=== PATIENT | male | born 1960 | race Caucasian/White ===

== ENCOUNTER 2016-07-04 20:38 | Inpatient (IN) | payer BC, OTHER ==
[~2016-07-04] VITALS: Ht 182.9 cm; Wt 133.0 kg
[2016-07-04 21:04] LABS: HEMOGLOBIN 16.7 gm/dl (14.0-17.5); RED BLOOD COUNT 5.45 M/UL (4.20-5.50); WHITE BLOOD COUNT 11.5 K/UL (4.5-11.0)
[2016-07-04 21:30] LABS: BUN/CREATININE RATIO 10 (0-10)
[2016-07-05] MEDS ORDERED: ASPIRIN325 MG PO (05:27)
[2016-07-05] MEDS ORDERED: MULTAQ 400 MG400 MG PO (05:27)
[2016-07-05 06:44] LABS: HEMOGLOBIN 16.8 gm/dl (14.0-17.5); RED BLOOD COUNT 5.51 M/UL (4.20-5.50); WHITE BLOOD COUNT 14.2 K/UL (4.5-11.0)
[2016-07-05 07:07] LABS: BUN/CREATININE RATIO 10 (0-10)
--- NOTE | 2016-07-05 10:13 | NUR ---
0900 - REFUSED TO TAKE MEDICATIONS FROM PHARMACY, DUE TO COST; STATES THAT HE WILL TAKE HIS HOME MEDICATIONS HE TAKES THEM AT HOME. STRONGLY ENCOURAGED HIM TO TAKE HIS BYSTOLIC DUE TO BP OF 156/97; PRIOR CHECK BY BOX REPAIRER WAS 158/117. AGAIN STATED HE WOULD TAKE HIS OWN MEDICATIONS.
[2016-07-06] MEDS ORDERED: BYSTOLIC20 MG PO (05:26)
[2016-07-06] MEDS ORDERED: CEFUROXIME500 MG PO (14:28)
[2016-07-06] MEDS ORDERED: MEDROL DOSEPAK 24 MG PO (14:29)
[2016-07-06] MEDS ORDERED: PROVENTIL HFA 61 INH INH (14:39)
== END 2016-07-06 15:35 | disposition home or self-care (01) | DRG 202 ==
LOC: ER1 20:38 → M/S 07-05 03:27 → ZEROF 07-05 03:27 → M/S 07-05 05:22
PROVIDERS: Student in an Organized Health Care Education/Training Program; ADMIT Hospitalist
DX: J20.9 Acute bronchitis, unspecified (principal); I47.1 Supraventricular tachycardia; I48.0 Paroxysmal atrial fibrillation; G47.00 Insomnia, unspecified; F15.90 Other stimulant use, unspecified, uncomplicated; I10 Essential (primary) hypertension; E04.1 Nontoxic single thyroid nodule
CPT/HCPCS: ECHO; 36415; 36600; 71010; 71020; 80048; 80053; 80307; 81001; 82550; 82553; 82803; 83605; 83735; 83874; 84439; 84443; 84484; 85025; 85379; 87040; 87070; 87205; 93005; 93306; 94664; 96361; 96374; 96375; 99285; J0696; J2930; J7030; J7050; Q9963

== ENCOUNTER → 2016-07-11 | Outpatient (CLI) | payer BC, OTHER ==
[~2016-07-11] MED LIST: ASPIRIN325 MG PO; BYSTOLIC20 MG PO; CEFUROXIME500 MG PO; MEDROL DOSEPAK 24 MG PO; MULTAQ 400 MG400 MG PO; PROVENTIL HFA 61 INH INH
== END ==
LOC: NM 07:07
DX: E03.9 Hypothyroidism, unspecified (principal)
CPT/HCPCS: 36415; 76536; 78012; 84439; 84443; 84480; A9516

== ENCOUNTER → 2020-07-16 | Outpatient (CLI) | payer OTHER ==
[~2020-07-16] MED LIST changes: +ANTIVERT 12.512.5 MG PO
[2020-07-16 09:45] LABS: BUN/CREATININE RATIO 14 (0-10)
== END ==
LOC: LAB 08:40
DX: I42.9 Cardiomyopathy, unspecified (principal)
CPT/HCPCS: 36415; 80048

== ENCOUNTER 2020-10-04 17:13 | Emergency (ER) | payer OTHER ==
[~2020-10-04 17:13] MED LIST changes: -ASPIRIN325 MG PO
[2020-10-04 19:09] LABS: HEMOGLOBIN 16.5 gm/dl (14.0-17.5); RED BLOOD COUNT 5.65 M/UL (4.20-5.50); WHITE BLOOD COUNT 3.4 K/UL (4.5-11.0)
[2020-10-04 19:25] LABS: BUN/CREATININE RATIO 18 (0-10)
[2020-10-09] MEDS ORDERED: ASPIRIN EC81 MG PO (05:27)
[2020-10-11] MEDS ORDERED: PROTONIX 40 MG40 M1 PO (12:21)
[2020-10-11] MEDS ORDERED: BUDESONIDE0.5 MG/2 M NEB (12:21)
[2020-10-11] MEDS ORDERED: DOXYCYCLINE HY100 MG PO (12:22)
[2020-10-11] MEDS ORDERED: DEXAMETHASONE1 MG PO (12:22)
[2020-10-11] MEDS ORDERED: NEBULIZER UNIT INH ×2 (12:23→16:13)
[2020-10-11] MEDS ORDERED: TESSALON PERLE100 MG PO (14:38)
== END 2020-10-05 | disposition home or self-care (01) ==
LOC: ER1 17:13
PROVIDERS: Physician Assistant
DX: U07.1 COVID-19 (principal); I11.0 Hypertensive heart disease with heart failure; I50.9 Heart failure, unspecified; E78.5 Hyperlipidemia, unspecified; I25.10 Atherosclerotic heart disease of native coronary artery without angina pectoris; Z23 Encounter for immunization; Z95.0 Presence of cardiac pacemaker; Z88.6 Allergy status to analgesic agent
CPT/HCPCS: 71045; 80053; 82550; 82553; 83874; 83880; 84484; 85025; 93005; 99284; M0243

== ENCOUNTER 2020-10-09 12:41 | Inpatient (IN) | payer OTHER ==
[~2020-10-09] VITALS: Ht 182.9 cm; Wt 109.3 kg
[~2020-10-09 12:41] MED LIST changes: +ASPIRIN EC81 MG PO
[2020-10-09 14:32] LABS: HEMOGLOBIN 16.8 gm/dl (14.0-17.5); RED BLOOD COUNT 5.48 M/UL (4.20-5.50); WHITE BLOOD COUNT 4.2 K/UL (4.5-11.0)
[2020-10-09 14:53] LABS: BUN/CREATININE RATIO 14 (0-10)
[2020-10-09] MEDS ORDERED: CARVEDILOL25 MG PO (16:38)
[2020-10-09] MEDS ORDERED: DAILY VALUE1 EACH PO (16:38)
[2020-10-09] MEDS ORDERED: CRESTOR10 MG PO (16:39)
[2020-10-09] MEDS ORDERED: ELIQUIS5 MG PO (16:39)
[2020-10-09] MEDS ORDERED: ENTRESTO 49 MG1 EACH PO (16:40)
[2020-10-10 05:18] LABS: WHITE BLOOD COUNT 4.2 K/UL (4.5-11.0)
[2020-10-10 05:35] LABS: BUN/CREATININE RATIO 21 (0-10)
[2020-10-10 05:45] LABS: HEMOGLOBIN 14.6 gm/dl (14.0-17.5); RED BLOOD COUNT 4.87 M/UL (4.20-5.50)
[2020-10-11 04:39] LABS: HEMOGLOBIN 14.3 gm/dl (14.0-17.5); RED BLOOD COUNT 4.78 M/UL (4.20-5.50)
[2020-10-11 04:52] LABS: WHITE BLOOD COUNT 10.2 K/UL (4.5-11.0)
[2020-10-11 05:39] LABS: BUN/CREATININE RATIO 27 (0-10)
[2020-10-11] MEDS ORDERED: BUDESONIDE0.5 MG/2 M NEB (12:21)
[2020-10-11] MEDS ORDERED: PROTONIX 40 MG40 M1 PO (12:21)
[2020-10-11] MEDS ORDERED: DEXAMETHASONE1 MG PO (12:22)
[2020-10-11] MEDS ORDERED: DOXYCYCLINE HY100 MG PO (12:22)
[2020-10-11] MEDS ORDERED: NEBULIZER UNIT INH ×2 (12:23→16:13)
[2020-10-11] MEDS ORDERED: TESSALON PERLE100 MG PO (14:38)
== END 2020-10-11 16:45 | disposition home or self-care (01) | DRG 177 ==
LOC: ER1 12:41 → CDU 15:12 → MED SURG 4 10-10 00:36
PROVIDERS: Preventive Medicine Occupational Medicine; ADMIT Internal Medicine
PROC: 3E0333Z Introduction of Anti-inflammatory into Peripheral Vein, Percutaneous Approach (ICD-10-PCS; principal; 2020-10-09)
PROC: XW033E5 Introduction of Remdesivir Anti-infective into Peripheral Vein, Percutaneous Approach, New Technology Group 5 (ICD-10-PCS; 2020-10-09)
PROC: 8E0ZXY6 Isolation (ICD-10-PCS; 2020-10-09)
DX: U07.1 COVID-19 (principal); J12.82 Pneumonia due to coronavirus disease 2019; I42.8 Other cardiomyopathies; I48.91 Unspecified atrial fibrillation; I25.10 Atherosclerotic heart disease of native coronary artery without angina pectoris; I50.9 Heart failure, unspecified; Z79.01 Long term (current) use of anticoagulants; Z95.810 Presence of automatic (implantable) cardiac defibrillator; Z79.82 Long term (current) use of aspirin; Z88.6 Allergy status to analgesic agent; Z82.49 Family history of ischemic heart disease and other diseases of the circulatory system; Z95.0 Presence of cardiac pacemaker
CPT/HCPCS: 36415; 36600; 71045; 80053; 82550; 82553; 82803; 83605; 83690; 83874; 84439; 84443; 84484; 85025; 85652; 86140; 94640; 94664; 94760; 96374; 99285; J0696; J1100; J7030; U0002

== ENCOUNTER → 2020-12-15 | Outpatient (CLI) | payer OTHER ==
[~2020-12-15] MED LIST changes: +BUDESONIDE0.5 MG/2 M NEB; +CARVEDILOL25 MG PO; +CRESTOR10 MG PO; +DAILY VALUE1 EACH PO; +DEXAMETHASONE1 MG PO; +DOXYCYCLINE HY100 MG PO; +ELIQUIS5 MG PO; +ENTRESTO 49 MG1 EACH PO; +NEBULIZER UNIT INH; +PROTONIX 40 MG40 M1 PO; +TESSALON PERLE100 MG PO
[2020-12-15 07:58] LABS: HEMOGLOBIN 15.9 gm/dl (14.0-17.5); RED BLOOD COUNT 5.44 M/UL (4.20-5.50); WHITE BLOOD COUNT 6.4 K/UL (4.5-11.0)
[2020-12-15 08:26] LABS: BUN/CREATININE RATIO 19 (0-10)
== END ==
LOC: LAB 07:27
PROVIDERS: Family Medicine
DX: U07.1 COVID-19 (principal); J12.82 Pneumonia due to coronavirus disease 2019; I10 Essential (primary) hypertension; E78.5 Hyperlipidemia, unspecified; E66.9 Obesity, unspecified; E04.1 Nontoxic single thyroid nodule
CPT/HCPCS: 36415; 71046; 80053; 80061; 84443; 85027

== ENCOUNTER → 2021-02-11 | Outpatient (CLI) | payer OTHER | LOC: RAD 10:50 | DX: M54.50 Low back pain, unspecified (principal) | CPT/HCPCS: 72110 ==

== ENCOUNTER → 2021-03-04 | Outpatient (CLI) | payer OTHER | LOC: KOH-I 01-05 13:30 | DX: R91.1 Solitary pulmonary nodule (principal); E04.9 Nontoxic goiter, unspecified; K74.60 Unspecified cirrhosis of liver; R16.1 Splenomegaly, not elsewhere classified | CPT/HCPCS: 71250 ==

== ENCOUNTER → 2021-03-26 | Outpatient (CLI) | payer OTHER | LOC: EXRD 09:49 | DX: K74.60 Unspecified cirrhosis of liver (principal); K76.0 Fatty (change of) liver, not elsewhere classified; K80.80 Other cholelithiasis without obstruction; N28.1 Cyst of kidney, acquired | CPT/HCPCS: 76700 ==